=== PATIENT | female | born 1980 | race Caucasian/White ===

== ENCOUNTER 2020-06-07 07:42 | Outpatient (CLI) | payer OTHER ==
--- NOTE | 2020-06-07 08:59 | MRI ---
MRI cervical spine noncontrast: HISTORY: 39-year-old female "M 50.20 other cervical disc displacement, unspecified cervical region" COMPARISON: None FINDINGS: There is loss of lordosis. Mild kyphosis centered at approximately C5. Vertebral body heights are nimo ntained. Cervical spinal cord is normal in size and signal. C1-2: No central stenosis. C2-3: Normal. C3-4: Small bilateral uncinate process osteophytes. Otherwise essentially normal. C4-5: Mild right facet DJD. Minimal broad-based disc-osteophyte complex plus tiny central focal disc protrusion encroaches upon ventral aspect of spinal canal. Mild central spinal canal stenosis. Small bilateral uncinate process osteophytes. No high-grade neural foraminal stenosis. C5-6: Modic type I endplate marrow changes at C5 and C6, especially extensive throughout most of the C5 vertebral body. Moderate disc space narrowing. Slight retrolisthesis of C5 on C6 plus prominent broad-based disc-osteophyte complex indents the ventral surface of spinal cord displacing it posterio rly slightly. Moderate to severe central spinal canal stenosis. Moderate size bilateral uncinate process osteophytes, right greater than left, causing severe right neural foraminal stenosis and mode rate to severe left neural foraminal stenosis. Essentially normal facet joints. C6-7: Mild disc space narrowing. Modic type I endplate marrow changes. Superimposed on a broad-based disc/osteophyte complex that protrudes into the anterior aspect of spinal canal, there is a focal small to moderate-sized left-paracentral disc herniation with slight inferior migration of disc mater ial, which qualifies this is a disc extrusion, indenting the left ventral aspect of the spinal cord. There is moderate to severe central spinal canal stenosis. Moderate size bilateral uncinate pro cess osteophytes. Severe bilateral neural foraminal stenosis. No high-grade facet DJD. C7-T1: Disc space maintained. No central stenosis. Moderate bilateral facet DJD, right worse than lef t. Mild to moderate bilateral neural foraminal stenosis. IMPRESSION: 1.) Cervical spondylosis consisting of moderate degenerative disc disease at C5-6 and C6-7, and moder ate facet osteoarthrosis at C7-T1. 2) high-grade central spinal canal stenosis and severe bilateral neural foraminal stenosis at C5-6 an d C6-7. 3) additional superimposed left paracentral focal disc extrusion at C6-7 impinging on the spinal cord
== END 2020-06-07 07:43 | disposition home or self-care (01) ==
LOC: TBSIIMAG 07:42
PROVIDERS: ATTEND Psychiatry & Neurology Neurology
DX: M50.20 Other cervical disc displacement, unspecified cervical region (principal); M50.322 Other cervical disc degeneration at C5-C6 level; M47.812 Spondylosis without myelopathy or radiculopathy, cervical region; M48.02 Spinal stenosis, cervical region
CPT/HCPCS: 72141

== ENCOUNTER 2020-06-28 12:42 | Outpatient (CLI) | payer OTHER ==
--- NOTE | 2020-07-26 13:27 | MMO ---
Bilateral MAMMO Bilat Screen [facility]. CLINICAL HISTORY: Patient is 39 years old and is seen for screening. The patient has no family history of breast cancer. The patient has no personal history of cancer. VIEWS: The views performed were: bilateral craniocaudal with tomosynthesis and bilateral mediolateral oblique with tomosynthesis. This study has been interpreted with the assistance of computer-aided detection. MAMMOGRAM FINDINGS: The breasts are heterogeneously dense, which could obscure a lesion on mammography. There are no suspicious masses, suspicious calcifications, or new areas of architectural distortion. IMPRESSION: THERE IS NO MAMMOGRAPHIC EVIDENCE OF MALIGNANCY. A ROUTINE FOLLOW-UP MAMMOGRAM IN 1 YEAR IS RECOMMENDED. THE RESULTS OF THIS EXAM WERE SENT TO THE PATIENT. ACR BI-RADS Category 1 - Negative MAMMOGRAPHY NOTE: 1. A negative mammogram report should not delay a biopsy if a dominant of clinically suspicious mass is present. 2. Approximately 10% to 15% of breast cancers are not detected by mammography. 3. Adenosis and dense breasts may obscure an underlying neoplasm. Reported by: GREGG SOLORZANO MD Electonically Signed: [id number]
== END 2020-06-28 12:43 | disposition home or self-care (01) ==
LOC: BICMAMMO 12:42
PROVIDERS: ATTEND Family Medicine
DX: Z12.31 Encounter for screening mammogram for malignant neoplasm of breast (principal)
CPT/HCPCS: 77063; 77067

== ENCOUNTER 2020-08-14 06:07 | Outpatient (CLI) | payer OTHER ==
[2020-08-14 11:23] LABS: PTT 36.1 sec (22.9-36.1); Prothrombin Time 12.7 sec (12.0-14.7)
[2020-08-14 11:57] LABS: Hemoglobin 13.9 g/dL (12.0-16.0); Mean Corpuscular HGB CONC 32.3 g/dL (32.0-36.0); Mean Corpuscular Hemoglobin 28.2 pg (27.0-31.0); Mean Corpuscular Volume 87.5 fL (78.0-98.0); Mean Platelet Volume 8.5 fL (7.4-10.4); Platelet Count 293 thou/uL (130-400); RBC Distribution Width 12.1 % (11.5-14.5); Red Blood Cell (RBC) Count 4.92 mill/uL (4.20-5.40); White Blood Cell (WBC) Count 8.2 thou/uL (4.8-10.8)
[2020-08-14 17:58] LABS: SARS-CoV-2 MS2 Positive; SARS-CoV-2 N Gene Negative; SARS-CoV-2 S Gene Negative; SARS-CoV-2 by NAA Not Detected (NotDetected); SARS-CoV-2 orf1ab Negative
== END 2020-08-14 06:08 | disposition home or self-care (01) ==
LOC: LABBT 06:07
PROVIDERS: ATTEND Neurological Surgery
DX: Z01.812 Encounter for preprocedural laboratory examination (principal); Z20.828 Contact with and (suspected) exposure to other viral communicable diseases; M50.122 Cervical disc disorder at C5-C6 level with radiculopathy
CPT/HCPCS: 85027; 85610; 85730; 87635; U0003

== ENCOUNTER 2020-08-17 11:03 | Day surgery (SDC) | payer OTHER ==
[2020-08-15 13:40] VITALS: BMI 21.8
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
[~2020-08-17 11:03] MED LIST: Dexamethasone 20 MG/5 ML VIAL ONE; Glycopyrrolate 0.2 MG/ML 5 ML SYRINGE ONE; Lidocaine 1% PF 5 ML VIAL ONE; PROPOFOL 200 MG/20 ML VIAL ONE; Rocuronium Bromide 10 MG/ML (10ML VIAL) ONE
[2020-08-17] MEDS ORDERED: Thrombin 5000 UNITS/5 ML VIAL ONE (11:43)
[2020-08-17] MEDS ORDERED: Fentanyl 100 MCG/2 ML VIAL ONE ×5 (12:03→15:48)
[2020-08-17] MEDS ORDERED: Midazolam HCl 2 mg/2 ml Vial ONE (12:11)
[2020-08-17] MEDS ORDERED: SUGAMMADEX SODIUM 200 MG/2 ML VIAL ONE (14:50)
[2020-08-17] MEDS ORDERED: Ketorolac Tromethamine 30 MG/ML VIAL ONE (15:48)
[2020-08-17] MEDS ORDERED: tiZANidine HCl 4 MG TAB ONE (16:38)
[2020-08-17] MEDS ORDERED: HYDROcodone/Acetaminophen 5/325 mg Tablet ONE (17:46)
--- NOTE | 2020-08-17 20:14 | OP ---
DATE OF PROCEDURE: 08/17/2020 LOGISTICS LOSS PREVENTION MANAGER: Chun Simmons PA-C PREOPERATIVE INDICATION: Treat pain and prevent neurological deterioration. PREOPERATIVE DIAGNOSES: Intervertebral disk disease at C5-C6 and C6-C7 with radiculopathies at C6 and C7. POSTOPERATIVE DIAGNOSES: Intervertebral disk disease at C5-C6 and C6-C7 with radiculopathies at C6 and C7. PROCEDURES PERFORMED: 1. Anterior cervical diskectomy, C5-C6 and C6-C7. 2. Intervertebral arthrodesis, C5-C6 and C6-C7. 3. Placement of intervertebral biomechanical device, C5-C6 and C6-C7. 4. Anterior cervical plating, C5-C6 and C6-C7 (separate device from interbody device). 5. Local morselized autograft and morselized allograft. 6. Operating microscope. PREOPERATIVE MEDICATIONS: Ancef 2 g IV. DRAIN NUMBER: Zero. DRAIN TYPE: None. DESCRIPTION OF PROCEDURE: The patient was brought to the operating room. General endotracheal anesthesia was induced. The patient was positioned supine on the operating room table with her head supported by a gel-filled donut-shaped headrest. A lateral fluoro radiograph was used to plan our incision. The right side of the neck was sterilely prepped and draped. We opened with a 10 blade knife and we controlled bleeding with bipolar cautery. We dissected sharply to the platysma and cut this muscle in line with our incision. We continued our dissection medial to the sternocleidomastoid and the lateral to the trachea and esophagus. We arrived at the prevertebral space. We placed a marker at C5-C6 and took a lateral fluoro radiograph to confirm the levels upon which we were operating. We then elevated the longus colli muscles off the anterior surface of C5, C6, and C7, and placed a self-retaining retractor beneath them. Distraction pins were placed at C5 and C7 and we distracted across the intervening interspaces. We incised the interspaces with a 15 blade knife and we removed disk contents using curettes and rongeurs. The operating microscope was brought into the field. Under microscopic magnification and using microsurgical techniques, we removed the remainder of the intervertebral disk. We used a microcurette to access the ventral epidural space. We used a Kerrison rongeur to remove posterior osteophytes and posterior longitudinal ligament across the entire interspace from one neural foramen all the way to the other. This was done at C5-C6 and C6-C7. We then turned our attention to arthrodesis. Curettes were used to prepare the endplates for grafting. A bone rasp was brought into the field to measure the height of the interspace to 7 mm at both of the interspaces. Two separate PEEK intervertebral grafts were brought into the field. These were loaded with demineralized bone matrix and morselized autograft and advanced into the respective interspaces under radiographic guidance to the appropriate depth. We then removed our distraction pins and the operating microscope. A 31-mm anterior cervical plate was brought into the field. This was separate from the interbody devices. We drilled corporate pilot holes through the plate into the vertebral bodies and affixed the plate using 14 mm screws. Fixed angle screws were used at C7 and variable angle screws at C5 and C6. We engaged the locking mechanism over each of the 6 screws. AP and lateral fluoro radiographs confirmed adequate positioning of our instrumentation. We irrigated with bacitracin irrigation. We closed the wound in anatomical layers and applied a sterile dressing. This was a clean case, no contamination. Job ID: [id number]
== END 2020-08-17 18:02 | disposition home or self-care (01) ==
LOC: SDC 11:03
PROVIDERS: ATTEND Neurological Surgery
DX: M50.122 Cervical disc disorder at C5-C6 level with radiculopathy (principal); F32.9 Major depressive disorder, single episode, unspecified; F41.9 Anxiety disorder, unspecified; M19.90 Unspecified osteoarthritis, unspecified site; Z87.891 Personal history of nicotine dependence; Z79.899 Other long term (current) drug therapy
CPT/HCPCS: 76000; C1713; C1776; J0690; J1100; J1885; J2250; J2704; J3010; J3490

== ENCOUNTER 2020-10-11 13:19 | Outpatient (CLI) | payer OTHER ==
--- NOTE | 2020-10-11 13:58 | RAD ---
CERVICAL SPINE: 10/11/20 INDICATIONS: Postop follow-up. COMPARISON: 07/10/20. Postop changes are noted. Anterior fusion procedure since prior exam. Anterior plate and screws are n ow present transfixing C5, C6 and C7 with interbody implants. Posterior spondylosis at C5-6 and C6-7 noted. The other vertebral bodies and disc spaces maintain height and alignment. IMPRESSION: Postoperative changes since prior study. POS: [facility]
== END 2020-10-11 13:20 | disposition home or self-care (01) ==
LOC: TBSIIMAG 13:19
PROVIDERS: ATTEND Neurological Surgery
DX: M50.20 Other cervical disc displacement, unspecified cervical region (principal); Z98.1 Arthrodesis status
CPT/HCPCS: 72040

== ENCOUNTER 2021-04-17 11:56 | Outpatient (CLI) | payer OTHER | END 2021-04-17 11:57 | disposition home or self-care (01) | LOC: RAD 11:56 | PROVIDERS: ATTEND Neurological Surgery | DX: M54.12 Radiculopathy, cervical region (principal); M43.12 Spondylolisthesis, cervical region; Z98.1 Arthrodesis status | CPT/HCPCS: 72050 ==